=== PATIENT | female | born 1935 | race Caucasian/White ===

== ENCOUNTER 2021-11-18 15:05 | Emergency (ER) | payer MEDICARE ==
--- NOTE | 2021-11-18 15:07 | ERPHSYRPT ---
- History of Present Illness Time Seen by Provider: 11/18/21 15:07 Source: patient Exam Limitations: no limitations (No new injury) Physician History: This is an 86-year-old white female patient of nurse practitioner Ash who fell back in May 2021. She has had left hip pain chronically, intermittently. An x-ray was performed at that time and there is no evidence of fracture. Intermittently, since then she has had some bruising and pain despite no repeat fall. In the last day or 2 the pain was worse than typical and therefore the patient is here for evaluation. Patient denies abdominal pain. She denies chest pain. She denies shortness of breath. Method of Injury: other Occurred: days ago (2) Quality: constant, aching, stabbing Severity of Pain-Max: moderate Severity of Pain-Current: mild (To moderate) Lower Extremities Pain: hip: left Modifying Factors: Improves With: movement Associated Symptoms: other (Hurts to bear weight) Allergies/Adverse Reactions: Sulfa (Sulfonamide Antibiotics) Allergy (Verified 02/22/14 18:31) Home Medications: Levothyroxine Sodium 75 Mcg [Synthroid 75 Mcg] 75 mcg PO DAILY 02/22/14 [History] Hx Tetanus, Diphtheria Vaccination/Date Given: (UNKNOWN) Hx Influenza Vaccination/Date Given: No Hx Pneumococcal Vaccination/Date Given: No Travel Risk - International Travel Have you traveled outside of the country in past 3 weeks: No - Coronavirus Screening Are you exhibiting any of the following symptoms?: No Close contact with a COVID-19 positive Pt in past 14-21 Days: No - Review of Systems Constitutional: No Symptoms Eyes: No Symptoms Ears, Nose, & Throat: No Symptoms Respiratory: No Symptoms Cardiac: No Symptoms Abdominal/Gastrointestinal: No Symptoms Genitourinary Symptoms: No Symptoms Musculoskeletal: Joint Pain (Left hip) Skin: No Symptoms Neurological: No Symptoms Psychological: No Symptoms Endocrine: No Symptoms Hematologic/Lymphatic: No Symptoms Immunological/Allergic: No Symptoms All Other Systems: Reviewed and Negative - Past Medical History Pertinent Past Medical History: Yes Neurological History: No Pertinent History Cardiac History: No Pertinent History Respiratory History: No Pertinent History Endocrine Medical History: No Pertinent History Musculoskeletal History: Osteoarthritis Other Medical History: See chart for vestibular testing - Past Surgical History Past Surgical History: Yes Cardiac: Cardiac Catheterization Female Surgical History: Hysterectomy Other Surgical History: throid - Social History Smoking Status: Never smoker Exposure to second hand smoke: No Alcohol Use: None Drug Use: none Patient Lives Alone: No Significant Family History: no pertinent family hx - Nursing Vital Signs Nursing Vital Signs: Initial Vital Signs Temperature 97.2 F 11/18/21 15:15 Pulse Rate 74 11/18/21 15:15 Respiratory Rate 18 11/18/21 15:15 Blood Pressure 189/85 11/18/21 15:15 Pain Scale Pain Intensity 5 - Physical Exam General Appearance: no apparent distress, alert, anxiety Eyes, Ears, Nose, Throat Exam: normal ENT inspection, moist mucous membranes Neck Exam: normal inspection, non-tender, supple, full range of motion Cardiovascular/Respiratory Exam: chest non-tender, no respiratory distress Gastrointestinal/Abdominal Exam: non-tender Back Exam: normal inspection, normal range of motion, No CVA tenderness, No vertebral tenderness Hips Exam: right: non-tender, left: pain, bilateral: normal inspection, normal range of motion, no evidence of injury Legs Exam: bilateral leg: non-tender, normal inspection, normal range of motion, no evidence of injury Knees Exam: bilateral knee: non-tender, normal inspection, normal range of motion, no evidence of injury Ankle Exam: bilateral ankle: non-tender, normal inspection, normal range of motion, no evidence of injury Foot Exam: bilateral foot: non-tender, normal inspection, normal range of motion, no evidence of injury Neuro/Tendon Exam: normal sensation, normal motor functions, normal tendon functions, responds to pain Mental Status Exam: alert, oriented x 3, cooperative Skin Exam: normal color, warm, dry SpO2 Interpretation: normal O2 Delivery: Room Air - Course Nursing assessment & vital signs reviewed: Yes Ordered Tests: Active Orders 24 hr Category Date Time Status PELVIS WITHOUT CONTRAST [CT] Stat Exams 11/18/21 15:29 Completed Medication Summary Discontinued Medications Generic Name Dose Route Start Last Admin Trade Name Freq PRN Reason Stop Dose Admin Hydrocodone Bitart/Acetaminophen 1 tab 11/18/21 17:05 Hydrocodone/Apap 5/325 Mg Tablet PO 11/18/21 17:06 STAT ONE Methylprednisolone Sodium 0 mg 11/18/21 17:05 Succinate 125 mg/ Sterile IM 11/18/21 17:06 Water 2 ml STAT ONE Lorazepam 0.5 mg 11/18/21 15:29 11/18/21 16:06 Lorazepam 2 Mg/1 Ml 2 Mg Vial IM 11/18/21 15:30 0.5 mg STAT ONE Administration Lorazepam Confirm 11/18/21 15:36 Lorazepam 2 Mg/1 Ml 2 Mg Vial Administered 11/18/21 15:37 Dose 2 mg .ROUTE .STK-MED ONE - Progress Progress: improved, pain not gone completely, re-examined Progress Note: 11/18/21 17:06 CAT scan of the pelvis and left hip shows multilevel degenerative changes in the lumbar spine. There is degenerative arthropathy in bilateral hips with the right side being worse than the left. There is no acute fracture or dislocation. Counseled pt/family regarding: diagnosis, need for follow-up, rad results - Departure Departure Disposition: Home Clinical Impression: Left hip pain, Arthritis of left hip Condition: Stable Critical Care Time: No Referrals: JESUS YEN NP [Primary Care Provider] - Follow up/PCP as directed Additional Instructions: Medications as prescribed. Follow-up with your prescribing provider for further evaluation and management. Prescriptions: Hydrocodone/APAP 5/325 [Arvonia 5/325 mg] 1 each PO Q12H PRN PRN #6 tablet MDD 2 PRN Reason: Pain Prednisone 10 mg [Deltasone 10 mg] 10 mg PO TID #12 tablet
[2021-11-18] MEDS ORDERED: Ativan 2 MG/1 ML VIAL IM ONE (15:29)
[2021-11-18] MEDS ORDERED: Ativan 2 MG/1 ML VIAL ONE (15:36)
[2021-11-18 16:37] VITALS: PULSE 78; O2SAT 98
--- NOTE | 2021-11-18 16:45 | XRAY ---
Indication: Left hip pain. Bruising. Multiple contiguous axial images obtained through the pelvis with special attention to the osseous structures. Sagittal and coronal reformatted images obtained. Comparison: None Osseous structures demineralized consistent with patient's age. Mild left and moderate right hip degenerative arthropathy as evidenced by joint space loss, bony sclerosis/spurring, and tiny subcortical cysts. No acute fracture, dislocation, suspicious bony lesions, or osseous destructive process. Incidental moderate degenerative changes of the visualized lower lumbar spine and both SI joints. Also moderate dextrorotoscoliosis seen on toposcan centered at L2. Incompletely visualized 1.5 cm gallstone. Remaining visualized noncontrasted soft tissues demonstrates scattered sigmoid diverticulosis, hysterectomy, and moderate scattered arteriosclerotic calcifications. No free fluid/air or walled off fluid collection. Impression: 1. Osteopenia, moderate multilevel lumbar degenerative spondylosis, bilateral hip degenerative arthropathy right greater than left, and lumbar dextrorotoscoliosis. 2. Incompletely visualized 1.5 cm gallstone. 3. Incidental sigmoid diverticulosis and scattered arteriosclerotic calcifications.
[2021-11-18] MEDS ORDERED: NORCO 5/325 MG PO ONE (17:05)
[2021-11-18] MEDS ORDERED: solu-MEDROL 125 MG, Sterile H2O 10 ml 2 ML IM ONE ×2 (17:05)
[2021-11-18] MEDS ORDERED: NORCO 5/325 MG ONE (17:21)
[2021-11-18] MEDS ORDERED: solu-MEDROL ONE (17:22)
[2021-11-18 17:34] VITALS: BP 166/85
== END 2021-11-18 17:51 | disposition home or self-care (01) ==
LOC: ED 15:05
DX: M16.12 Unilateral primary osteoarthritis, left hip (principal); M25.552 Pain in left hip; M47.816 Spondylosis without myelopathy or radiculopathy, lumbar region; Z79.891 Long term (current) use of opiate analgesic; Z79.52 Long term (current) use of systemic steroids; Z79.899 Other long term (current) drug therapy
CPT/HCPCS: 72192; 96372; 99284; J2060; J2930; A9270-GY

== ENCOUNTER 2021-12-01 07:42 | Day surgery (SDC) | payer MEDICARE ==
[2021-12-01] MEDS ORDERED: Xylocaine 1% Vial 30 ML PF IJ ONE (07:43)
[2021-12-01] MEDS ORDERED: Depo-Medrol 40 MG/ML IM ONE (07:43)
[2021-12-01] MEDS ORDERED: BUPIVACAINE 0.5% VIAL IJ ONE (07:43)
[2021-12-01] MEDS ORDERED: Lactated Ringers 1,000 ML IV ONE (08:55)
[2021-12-01] MEDS ORDERED: DIPRIVAN 200 MG/20 ML IV ONE (09:27)
--- NOTE | 2021-12-01 10:40 | XRAY ---
Indication: Left hip injection. Intraoperative fluoroscopy provided for 58 seconds. Single digital spot image submitted for interpretation demonstrates needle tip projecting lateral to the left femur neck. Small amount of contrast injected for needle tip placement. Correlate with intraoperative findings/report.
--- NOTE | 2021-12-01 12:48 | XRAY ---
58 seconds fluoroscopy time in surgery for intra-articular injection of the left hip.
== END 2021-12-01 09:59 | disposition home or self-care (01) ==
LOC: SDC-PAIN 07:42
PROVIDERS: ATTEND Psychiatry & Neurology Pain Medicine
DX: M16.12 Unilateral primary osteoarthritis, left hip (principal); Z79.899 Other long term (current) drug therapy
CPT/HCPCS: 20610; 73501; 77002; J1030; J2001; J2704; Q9966

== ENCOUNTER 2021-12-15 06:44 | Day surgery (SDC) | payer MEDICARE ==
[2021-12-15] MEDS ORDERED: Xylocaine 1% Vial 30 ML PF IJ ONE (06:45)
[2021-12-15] MEDS ORDERED: Depo-Medrol 40 MG/ML IM ONE (06:45)
[2021-12-15] MEDS ORDERED: Marcaine Mpf 0.5% Vial 30 Ml IJ ONE (06:45)
[2021-12-15] MEDS ORDERED: Decadron 4 MG INJ IV ONE (06:45)
[2021-12-15] MEDS ORDERED: DIPRIVAN 200 MG/20 ML IV ONE (08:43)
[2021-12-15] MEDS ORDERED: Lactated Ringers 1,000 ML IV ONE (09:11)
--- NOTE | 2021-12-15 09:57 | XRAY ---
Indication: Left SI joint and left piriformis injections. Intraoperative fluoroscopy provided for 1 minute 11 seconds. 3 digital spot images submitted for interpretation demonstrates posterior needle tip projecting over the inferior left SI joint. Second needle tip projects over the left piriformis muscle. Small amount of contrast injected for both needle tip placement. Correlate with intraoperative findings/report.
--- NOTE | 2021-12-15 11:43 | XRAY ---
1 minute and 11 seconds of fluoroscopy was used in surgery for a left SI and left piriformis injections.
== END 2021-12-15 09:18 | disposition home or self-care (01) ==
LOC: SDC-PAIN 06:44
PROVIDERS: ATTEND Psychiatry & Neurology Pain Medicine
DX: M46.1 Sacroiliitis, not elsewhere classified (principal); M79.18 Myalgia, other site
CPT/HCPCS: 20552; 27096; 72202; 76942; 77002; G0260; 99100; J1030; J1100; J2001; J2704; Q9966

== ENCOUNTER 2023-03-22 14:44 | Day surgery (SDC) | payer MEDICARE ==
[2023-03-22] MEDS ORDERED: Decadron 4 MG INJ IV ONE (14:45)
[2023-03-22] MEDS ORDERED: LIDOCAINE HCL 1% 50 MG/5 ML VL PF IJ ONE (14:45)
[2023-03-22] MEDS ORDERED: DIPRIVAN 200 MG/20 ML IV ONE (17:04)
[2023-03-22] MEDS ORDERED: Lactated Ringers 1,000 ML IV ONE (18:17)
--- NOTE | 2023-03-22 22:49 | XRAY ---
Indication: Right piriformis injection. Intraoperative fluoroscopy provided for 11 seconds. 2 digital spot images submitted for interpretation demonstrates posterior needle tip projecting over the expected right piriformis. Small amount of contrast injected for needle tip placement. Correlate with intraoperative findings/report.
--- NOTE | 2023-03-23 09:07 | XRAY ---
11 seconds of fluoroscopy was used in surgery for a right piriformis injection.
== END 2023-03-22 17:30 | disposition home or self-care (01) ==
LOC: SDC-PAIN 14:44
PROVIDERS: ATTEND Psychiatry & Neurology Pain Medicine
DX: M79.18 Myalgia, other site (principal); Z79.899 Other long term (current) drug therapy
CPT/HCPCS: 20553; 72170; 76942; 77002; 99100; J1100; J2001; J2704; Q9966